=== PATIENT | female | born 1960 | race American Indian/Alaskan Native ===

== ENCOUNTER 2025-07-04 04:18 | Observation (INO) ==
[2025-07-04] MEDS: fentaNYL 100 MCG/2 ML VIAL IV ONE (04:46)
[2025-07-04] MEDS: FAMOTIDINE/PF 20 MG/2 ML VIAL IV ONE (04:46)
[2025-07-04] MEDS: MAG HYDROX/AL HYDROX/SIMETH 30 ML ORAL.SUSP PO ONE (04:46)
[2025-07-04 04:56] LABS: Basophils # (Auto) 0.01 K/mcL (0.00-0.30); Basophils % (Auto) 0 % (0.0-2.0); Eosinophils # (Auto) 0.01 K/mcL (0.00-0.70); Eosinophils % (Auto) 0 % (0.0-7.0); Hematocrit 45.8 % (34.1-44.9); Hemoglobin 15.3 g/dL (11.2-15.7); Lymphocytes # (Auto) 0.64 K/mcL (1.50-4.80); Lymphocytes % (Auto) 3.2 % (15.5-49.0); Mean Corpuscular HGB Conc 33.4 g/dL (31.0-36.0); Monocytes # (Auto) 1.28 K/mcL (0.10-0.90); Monocytes % (Auto) 6.3 % (1.0-12.0); Neutrophils % (Auto) 89.4 % (38.0-78.0); Platelet Count 264 K/mcL (140-440); RBC 5.35 M/mcL (3.59-5.38); WBC 20.3 K/mcL (4.5-11.0)
[2025-07-04 05:16] LABS: ALT/SGPT 45 U/L (<40); AST/SGOT 15 U/L (<32); Albumin 4.0 gm/dL (3.2-5.2); Albumin/Globulin Ratio 1.1 (1.0-2.3); Alkaline Phosphatase 86 U/L (39-117); Anion Gap 13.0 (8.0-16.0); Bilirubin,Total 1.2 mg/dL (0.1-1.0); Blood Urea Nitrogen 9 mg/dL (8-23); Calcium 9.9 mg/dL (8.6-10.4); Carbon Dioxide 24 mmol/L (22-30); Chloride 88 mmol/L (96-108); Globulin 3.5 gm/dL (2.2-3.7); Glucose 258 mg/dL (70-105); Potassium 4.1 mmol/L (3.3-5.1); Sodium 125 mmol/L (133-145)
[2025-07-04] MEDS: 0.9 % SODIUM CHLORIDE 1,000 ML IV ONE (05:20)
[2025-07-04] MEDS: ONDANSETRON 4 MG/2 ML VIAL IV ONE ×2 (05:20→07:31)
[2025-07-04 07:14] LABS: Bilirubin,Urine NEGATIVE (Negative); Color,Urine LT. YELLOW; Glucose,Urine (UA) >=1000 mg/dL (Negative); Ketones,Urine >=80 mg/dL (Negative); Leukocyte Esterase,Urine NEGATIVE /uL (Negative); PH,Urine 6.0 (5.0-9.0); Protein,Urine NEGATIVE (Negative); Specific Gravity,Urine <= 1.005 (1.000-1.035); Urine Budding Yeast Few /hpf; Urobilinogen,Urine 0.2 mg/dL
[2025-07-04] MEDS ORDERED: ONDANSETRON 4 MG/2 ML VIAL IV PRN (07:30)
[2025-07-04] MEDS: LEVOFLOXACIN 500 MG/100 ML BAG IV ONE (07:31)
[2025-07-04] MEDS: 0.9 % SODIUM CHLORIDE 1,000 ML IV SCH (09:03)
[2025-07-04] MEDS: 0.9 % SODIUM CHLORIDE 10 ML SYRINGE IV SCH (09:05)
[2025-07-04] MEDS: metroNIDAZOLE 500 MG/100 ML BAG IV ONE (09:05)
[2025-07-04] MEDS: DOCUSATE SODIUM 100 MG CAPSULE PO SCH (10:44)
[2025-07-04 13:20] VITALS: TEMP 98.9; O2SAT 94
[2025-07-04] MEDS: ACETAMINOPHEN 1,000 MG/100 ML BAG IV PRN (13:28)
[2025-07-04] MEDS ORDERED: SENNOSIDES 1 TABLET PO SCH (21:00)
== END 2025-07-04 14:51 | disposition short-term general hospital (02) ==
LOC: ED 04:18 → MEDSUR 07:56 → INTOOBSV 07:56
PROVIDERS: ADMIT Family Medicine Adult Medicine; ATTEND Family Medicine Adult Medicine